=== PATIENT | female | born 1965 | race Caucasian/White ===

== ENCOUNTER 2019-01-07 12:47 | Emergency (ER) | payer MEDICARE, OTHER ==
[~2019-01-07] VITALS: Ht 167.6 cm; Wt 70.0 kg
[2019-01-07 12:57] VITALS: Ht 167.6 cm; Wt 70.0 kg
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
[2019-01-07] MEDS ORDERED: IBUPROFEN 800 MG TAB PO ONE (16:30)
[2019-01-07 17:32] VITALS: BP 119/66; PULSE 95; RESP 18
== END 2019-01-07 18:05 | disposition home or self-care (01) ==
LOC: E/R 12:47
DX: M54.2 Cervicalgia (principal); R51 Headache
CPT/HCPCS: 70450; 72125